=== PATIENT | female | born 1985 | race Caucasian/White ===

== ENCOUNTER 2017-06-07 08:44 | Emergency (ER) | payer SELFPAY ==
[~2017-06-07] VITALS: Ht 165.1 cm; Wt 98.0 kg
[2017-06-07 08:50] VITALS: BP 145/81
[2017-06-07 09:35] LABS: HEMATOCRIT 45.1 % (34.6-47.8)
[2017-06-07 09:48] LABS: BLOOD UREA NITROGEN 8 mg/dL (7-18)
[2017-06-07] MEDS ORDERED: ONDANSETRON ODT 4 MG ONE (09:52)
[2017-06-07] MEDS ORDERED: ONDANSETRON ODT 4 MG PO ONE (10:00)
== END 2017-06-07 11:50 | disposition home or self-care (01) ==
LOC: ED 09:55
DX: O20.0 Threatened abortion (principal); Z3A.01 Less than 8 weeks gestation of pregnancy
CPT/HCPCS: 36415; 76801; 80048; 81001; 82040; 84702; 85025; 86901; 87086; 99285

== ENCOUNTER 2017-06-21 14:52 | Emergency (ER) | payer MEDICAID ==
[~2017-06-21] VITALS: Ht 165.1 cm; Wt 94.7 kg
[2017-06-21] MEDS ORDERED: SODIUM CHLORIDE 0.9% 1,000ML IVBOLUS ONE (15:30)
[2017-06-21] MEDS ORDERED: SODIUM CHLORIDE FLUSH 10ML SYR IVF ONE (15:30)
[2017-06-21] MEDS ORDERED: ONDANSETRON 2MG/ML, 2ML IVPush ONE (15:30)
[2017-06-21 15:53] LABS: HEMATOCRIT 43.7 % (34.6-47.8); HEMOGLOBIN 14.8 g/dL (11.7-16.4); WHITE BLOOD COUNT 9.1 x10^3/uL (3.4-10)
[2017-06-21 15:59] LABS: RAPID INFLUENZA A Negative (Negative); RAPID INFLUENZA B Negative (Negative)
[2017-06-21 16:05] LABS: ASPARTATE AMINO TRANSFERASE 19 U/L (15-37); BLOOD UREA NITROGEN 6 mg/dL (7-18)
[2017-06-21] MEDS ORDERED: ONDANSETRON 2MG/ML, 2ML ONE (16:26)
[2017-06-21 18:41] VITALS: BP 126/82
== END 2017-06-21 18:44 | disposition home or self-care (01) ==
LOC: ED 18:20
DX: O26.891 Other specified pregnancy related conditions, first trimester (principal); Z3A.08 8 weeks gestation of pregnancy; G43.A1 Cyclical vomiting, in migraine, intractable; R11.0 Nausea
CPT/HCPCS: 36415; 76801; 80053; 81003; 84702; 85025; 87400; 96361; 96374; 99285; J2405; J7030

== ENCOUNTER 2017-09-21 12:35 | Outpatient (CLI) | payer MEDICAID | END 2017-09-21 13:10 | disposition home or self-care (01) | LOC: LDOP 12:35 | PROVIDERS: ATTEND Student in an Organized Health Care Education/Training Program | DX: O26.899 Other specified pregnancy related conditions, unspecified trimester (principal); R10.9 Unspecified abdominal pain; Z3A.00 Weeks of gestation of pregnancy not specified | CPT/HCPCS: 59025; 99211; G0463 ==

== ENCOUNTER 2017-09-21 13:15 | Inpatient (IN) | payer MEDICAID ==
[~2017-09-21] VITALS: Ht 165.1 cm; Wt 105.1 kg
[2017-09-21] MEDS ORDERED: SODIUM CHLORIDE FLUSH 10ML SYR IVF ONE (14:00)
[2017-09-21] MEDS ORDERED: SODIUM CHLORIDE 0.9% 1,000ML IVBOLUS ONE ×2 (14:00→16:30)
[2017-09-21] MEDS ORDERED: ONDANSETRON 2MG/ML, 2ML IVPush ONE (14:00)
[2017-09-21 14:35] LABS: BASOPHILS # (AUTO) 0.01 x10^3/uL (0-0.1); BASOPHILS % (AUTO) 0 % (0-1); EOSINOPHILS # (AUTO) 0.03 x10^3/uL (0-0.4); EOSINOPHILS % (AUTO) 0 % (1-7); LYMPHOCYTES % (AUTO) 7 % (22-44); MD NO; MEAN CORPUSCULAR HEMOGLOBIN 29.5 pg (27.0-34.8); MEAN CORPUSCULAR HGB CONC 33.7 g/dL (32.4-35.8); MEAN CORPUSCULAR VOLUME 87.6 fL (80-100); MEAN PLATELET VOLUME 10.7 fL (7.4-10.4); MONOCYTES # (AUTO) 0.36 x10^3/uL (0.2-0.8); MONOCYTES % (AUTO) 3 % (2-9); NEUTROPHILS # (AUTO) 10.91 x10^3/uL (1.8-6.8); NEUTROPHILS % (AUTO) 89 % (42-75); PLATELET COUNT 227 x10^3/uL (130-400); RED BLOOD COUNT 4.45 x10^6/uL (3.82-5.3); RED CELL DISTRIBUTION WIDTH 13.9 % (9.6-15.2)
[2017-09-21 14:47] LABS: ALBUMIN 2.9 g/dL (3.4-5.0); ANION GAP 8 mmol/L (5-15); CALCIUM 8.2 mg/dL (8.5-10.1); CHLORIDE 107 mmol/L (98-107)
[2017-09-21 14:51] LABS: ALANINE AMINOTRANSFERASE 17 U/L (12-78); ALKALINE PHOSPHATASE 82 U/L (45-117); BILIRUBIN,TOTAL 0.6 mg/dL (0.2-1.0); CREATININE 0.52 mg/dL (0.55-1.02); TOTAL PROTEIN 6.8 g/dL (6.4-8.2)
[2017-09-21] MEDS ORDERED: MORPHINE SULFATE 4 MG/ML, 1ML IVPush PRN ×2 (15:30→17:00)
[2017-09-21] MEDS ORDERED: MORPHINE SULFATE 4 MG/ML, 1ML ONE (15:32)
[2017-09-21] MEDS ORDERED: ONDANSETRON 2MG/ML, 2ML ONE (15:32)
[2017-09-21] MEDS ORDERED: SODIUM CHLORIDE 0.9% 1,000 ML IV ONE ×2 (16:00→16:52)
[2017-09-21 16:34] LABS: MICROSCOPIC INDICATED
[2017-09-21 16:38] LABS: CULTURE INDICATED? YES
[2017-09-21] MEDS ORDERED: SODIUM CHLORIDE FLUSH 10ML SYR IVF PRN (17:00)
[2017-09-21 17:58] VITALS: BP 113/68
[2017-09-21] MEDS: SODIUM CHLORIDE 0.9% 1,000 ML IV SCH (18:03)
[2017-09-21] MEDS: morphine SULFATE 10 MG/ML, 1ML IVPush PRN ×2 (19:22→22:46)
[2017-09-21 19:35] VITALS: BP 120/77
[2017-09-21] MEDS: ONDANSETRON 2MG/ML, 2ML IVPush PRN (22:46)
[2017-09-22] MEDS: SODIUM CHLORIDE 0.9% 1,000 ML IV SCH ×4 (00:18→19:55)
[2017-09-22 01:46] VITALS: BP 110/63
[2017-09-22 05:10] LABS: ALANINE AMINOTRANSFERASE 12 U/L (12-78); ALBUMIN 2.3 g/dL (3.4-5.0); ANION GAP 8 mmol/L (5-15); CALCIUM 7.6 mg/dL (8.5-10.1); CHLORIDE 111 mmol/L (98-107)
[2017-09-22 05:13] LABS: ALKALINE PHOSPHATASE 64 U/L (45-117); BILIRUBIN,TOTAL 0.5 mg/dL (0.2-1.0); CREATININE 0.39 mg/dL (0.55-1.02); TOTAL PROTEIN 5.5 g/dL (6.4-8.2)
[2017-09-22 05:18] LABS: BASOPHILS # (AUTO) 0.02 x10^3/uL (0-0.1); BASOPHILS % (AUTO) 0 % (0-1); EOSINOPHILS # (AUTO) 0.08 x10^3/uL (0-0.4); EOSINOPHILS % (AUTO) 1 % (1-7); LYMPHOCYTES # (AUTO) 1.57 x10^3/uL (1-3.4); LYMPHOCYTES % (AUTO) 20 % (22-44); MD NO; MEAN CORPUSCULAR HEMOGLOBIN 29.7 pg (27.0-34.8); MEAN CORPUSCULAR HGB CONC 33.9 g/dL (32.4-35.8); MEAN CORPUSCULAR VOLUME 87.7 fL (80-100); MONOCYTES # (AUTO) 0.65 x10^3/uL (0.2-0.8); MONOCYTES % (AUTO) 8 % (2-9); NEUTROPHILS # (AUTO) 5.47 x10^3/uL (1.8-6.8); NEUTROPHILS % (AUTO) 70 % (42-75); PLATELET COUNT 179 x10^3/uL (130-400); RED BLOOD COUNT 3.77 x10^6/uL (3.82-5.3); RED CELL DISTRIBUTION WIDTH 13.6 % (9.6-15.2)
[2017-09-22 06:53] VITALS: BP 112/58
[2017-09-22] MEDS: ONDANSETRON 2MG/ML, 2ML IVPush PRN ×2 (07:42→21:39)
[2017-09-22] MEDS: morphine SULFATE 10 MG/ML, 1ML IVPush PRN (07:51)
[2017-09-22 13:10] VITALS: BP 120/82
[2017-09-22] MEDS: morphine SULFATE 15 MG TAB.IR PO PRN ×2 (14:54→20:57)
[2017-09-22 18:31] VITALS: BP 106/66
[2017-09-23 01:58] VITALS: BP 91/53
[2017-09-23 02:00] VITALS: BP 104/66
[2017-09-23] MEDS: SODIUM CHLORIDE 0.9% 1,000 ML IV SCH ×4 (02:25→22:21)
[2017-09-23 05:44] LABS: ALBUMIN 2.3 g/dL (3.4-5.0); ANION GAP 8 mmol/L (5-15); CALCIUM 7.5 mg/dL (8.5-10.1); CHLORIDE 111 mmol/L (98-107)
[2017-09-23 05:49] LABS: ALANINE AMINOTRANSFERASE 15 U/L (12-78); ALKALINE PHOSPHATASE 61 U/L (45-117); BILIRUBIN,TOTAL 0.3 mg/dL (0.2-1.0); CREATININE 0.39 mg/dL (0.55-1.02); TOTAL PROTEIN 5.6 g/dL (6.4-8.2)
[2017-09-23 08:00] VITALS: BP 123/83
[2017-09-23] MEDS: morphine SULFATE 10 MG/ML, 1ML IVPush PRN ×2 (11:42→22:21)
[2017-09-23] MEDS: ONDANSETRON 2MG/ML, 2ML IVPush PRN ×2 (11:43→22:21)
[2017-09-23 15:04] VITALS: BP 117/75
[2017-09-23 19:27] VITALS: BP 119/78
[2017-09-24 03:13] VITALS: BP 125/70
[2017-09-24] MEDS: SODIUM CHLORIDE 0.9% 1,000 ML IV SCH ×3 (04:00→14:38)
[2017-09-24 05:28] LABS: CHLORIDE 110 mmol/L (98-107)
[2017-09-24 05:36] LABS: ANION GAP 13 mmol/L (5-15); CALCIUM 7.7 mg/dL (8.5-10.1); CREATININE 0.34 mg/dL (0.55-1.02)
[2017-09-24 05:37] LABS: ALANINE AMINOTRANSFERASE 14 U/L (12-78); ALBUMIN 2.3 g/dL (3.4-5.0); ALKALINE PHOSPHATASE 63 U/L (45-117); BILIRUBIN,TOTAL 0.7 mg/dL (0.2-1.0); TOTAL PROTEIN 5.6 g/dL (6.4-8.2)
[2017-09-24 07:15] VITALS: BP 108/70
[2017-09-24] MEDS: ONDANSETRON 2MG/ML, 2ML IVPush PRN (08:20)
[2017-09-24 14:02] VITALS: BP 135/86
[2017-09-24] MEDS ORDERED: SODIUM CHLORIDE 0.9% 1,000 ML IV SCH ×2 (15:00→17:12)
[2017-09-24] MEDS ORDERED: POTASSIUM CHLORIDE 20 MEQ TAB.ER.PRT PO ONE (18:30)
[2017-09-24 18:41] VITALS: BP 115/76
[2017-09-25] MEDS: SODIUM CHLORIDE 0.9% 1,000 ML IV SCH ×3 (01:00→23:00)
[2017-09-25 02:20] VITALS: BP 140/85
[2017-09-25] MEDS: morphine SULFATE 10 MG/ML, 1ML IVPush PRN (03:48)
[2017-09-25] MEDS: ONDANSETRON 2MG/ML, 2ML IVPush PRN (03:50)
[2017-09-25 05:52] LABS: ALANINE AMINOTRANSFERASE 15 U/L (12-78); ALBUMIN 2.5 g/dL (3.4-5.0); ANION GAP 6 mmol/L (5-15); CALCIUM 7.8 mg/dL (8.5-10.1); CHLORIDE 112 mmol/L (98-107); CREATININE 0.38 mg/dL (0.55-1.02)
[2017-09-25 05:54] LABS: ALKALINE PHOSPHATASE 69 U/L (45-117); BILIRUBIN,TOTAL 0.3 mg/dL (0.2-1.0); TOTAL PROTEIN 5.9 g/dL (6.4-8.2)
[2017-09-25 07:53] VITALS: BP 119/78
[2017-09-25] MEDS ORDERED: MAGNESIUM SULFATE PMX 2GM/50ML 50 ML IV ONE (13:00)
[2017-09-25] MEDS: GUAIFENESIN 200 MG TABLET PO SCH ×3 (13:55→20:26)
[2017-09-25 14:12] VITALS: BP 112/73
[2017-09-25 18:57] VITALS: BP 123/79
[2017-09-26 03:20] VITALS: BP 111/69
[2017-09-26 05:39] LABS: ALBUMIN 2.3 g/dL (3.4-5.0); CALCIUM 7.9 mg/dL (8.5-10.1); CHLORIDE 109 mmol/L (98-107)
[2017-09-26 05:43] LABS: ALANINE AMINOTRANSFERASE 13 U/L (12-78); ALKALINE PHOSPHATASE 65 U/L (45-117); ANION GAP 7 mmol/L (5-15); BILIRUBIN,TOTAL 0.4 mg/dL (0.2-1.0); CREATININE 0.35 mg/dL (0.55-1.02); TOTAL PROTEIN 5.7 g/dL (6.4-8.2)
[2017-09-26] MEDS: SODIUM CHLORIDE 0.9% 1,000 ML IV SCH (07:00)
[2017-09-26 07:45] VITALS: BP 122/77
[2017-09-26] MEDS: GUAIFENESIN 200 MG TABLET PO SCH ×3 (09:59→22:02)
[2017-09-26] MEDS: morphine SULFATE 10 MG/ML, 1ML IVPush PRN (12:11)
[2017-09-26] MEDS: ONDANSETRON 2MG/ML, 2ML IVPush PRN (12:23)
[2017-09-26 14:24] VITALS: BP 130/96
[2017-09-26] MEDS ORDERED: BUPIVACAINE/PF 0.5% ONE (14:54)
[2017-09-26] MEDS ORDERED: EPINEPHRINE 1 MG/ML, 1ML ONE (14:54)
[2017-09-26] MEDS ORDERED: FENTANYL PF 250 MCG/5ML ONE (15:05)
[2017-09-26] MEDS ORDERED: LIDOCAINE-MPF 2% ,5ML ONE (15:05)
[2017-09-26] MEDS ORDERED: PROPOFOL 10 MG/ML, 20ML ONE (15:05)
[2017-09-26] MEDS ORDERED: ROCURONIUM 10 MG/ML,10ML ONE (15:06)
[2017-09-26] MEDS ORDERED: DEXAMETHASONE 4 MG/ML, 1ML ONE (15:07)
[2017-09-26] MEDS ORDERED: ONDANSETRON 2MG/ML, 2ML ONE (15:07)
[2017-09-26] MEDS ORDERED: CEFOTETAN 2 GM ONE (15:26)
[2017-09-26] MEDS ORDERED: DEXAMETHASONE 4 MG/ML, 5ML ONE (15:26)
[2017-09-26] MEDS ORDERED: HYDROmorphone 2 MG/ML, 1ML ONE (16:05)
[2017-09-26] MEDS ORDERED: NEOSTIGMINE 1 MG/ML, 10ML ONE (16:26)
[2017-09-26] MEDS ORDERED: GLYCOPYRROLATE 0.4 MG/2 ML, 2ML ONE (16:26)
[2017-09-26] MEDS ORDERED: ONDANSETRON 2MG/ML, 2ML IVPush PRN (16:30)
[2017-09-26] MEDS ORDERED: PROMETHAZINE 25 MG/ML, 1ML IV PRN (16:30)
[2017-09-26] MEDS ORDERED: MEPERIDINE/PF 25MG/0.5ML IVPush PRN (16:30)
[2017-09-26] MEDS ORDERED: ACETAMINOPHEN 325 MG TABLET PO PRN (16:30)
[2017-09-26] MEDS ORDERED: OXYcodone 5 MG/5 ML ORAL.SOL UDC PO PRN (16:30)
[2017-09-26] MEDS ORDERED: morphine SULFATE 10 MG/ML, 1ML ONE (16:50)
[2017-09-26] MEDS ORDERED: OXYcodone 5 MG/5 ML ORAL.SOL UDC ONE (16:50)
[2017-09-26] MEDS ORDERED: FENTANYL PF 100 MCG/2ML ONE (16:50)
[2017-09-26] MEDS: FENTANYL PF 100 MCG/2ML IV PRN ×2 (16:53→17:02)
[2017-09-26] MEDS ORDERED: ACETAMINOPHEN 650 MG/20.3 ML UDC ONE (16:55)
[2017-09-26] MEDS: morphine SULFATE 10 MG/ML, 1ML IV PRN ×3 (16:55→17:16)
[2017-09-26] MEDS: LACTATED RINGERS 1,000 ML IV SCH (18:34)
[2017-09-26 19:32] VITALS: BP 121/71
[2017-09-26] MEDS: ONDANSETRON 2MG/ML, 2ML IV PRN (19:42)
[2017-09-26] MEDS: MORPHINE SULFATE 4 MG/ML, 1ML IV PRN ×2 (19:43→22:33)
[2017-09-26] MEDS ORDERED: ALBUTEROL SULFATE 2.5 MG/3 ML NPPB PRN (20:00)
[2017-09-27 00:06] VITALS: BP 113/71
[2017-09-27] MEDS: ONDANSETRON 2MG/ML, 2ML IV PRN ×4 (02:07→20:05)
[2017-09-27] MEDS: MORPHINE SULFATE 4 MG/ML, 1ML IV PRN ×3 (02:07→09:09)
[2017-09-27 03:49] VITALS: BP 108/70
[2017-09-27 05:32] LABS: BASOPHILS # (AUTO) 0.11 x10^3/uL (0-0.1); BASOPHILS % (AUTO) 1 % (0-1); EOSINOPHILS # (AUTO) 0.02 x10^3/uL (0-0.4); EOSINOPHILS % (AUTO) 0 % (1-7); LYMPHOCYTES # (AUTO) 1.66 x10^3/uL (1-3.4); LYMPHOCYTES % (AUTO) 13 % (22-44); MD NO; MEAN CORPUSCULAR HEMOGLOBIN 30.1 pg (27.0-34.8); MEAN CORPUSCULAR HGB CONC 34.2 g/dL (32.4-35.8); MEAN CORPUSCULAR VOLUME 88.2 fL (80-100); MEAN PLATELET VOLUME 11.6 fL (7.4-10.4); MONOCYTES # (AUTO) 0.54 x10^3/uL (0.2-0.8); MONOCYTES % (AUTO) 4 % (2-9); NEUTROPHILS % (AUTO) 82 % (42-75); PLATELET COUNT 183 x10^3/uL (130-400); RED BLOOD COUNT 3.91 x10^6/uL (3.82-5.3); RED CELL DISTRIBUTION WIDTH 14.1 % (9.6-15.2)
[2017-09-27 05:38] LABS: CHLORIDE 106 mmol/L (98-107)
[2017-09-27 05:47] LABS: ALANINE AMINOTRANSFERASE 32 U/L (12-78); ALBUMIN 2.4 g/dL (3.4-5.0); ALKALINE PHOSPHATASE 67 U/L (45-117); ANION GAP 9 mmol/L (5-15); BILIRUBIN,TOTAL 0.3 mg/dL (0.2-1.0); CALCIUM 8.1 mg/dL (8.5-10.1); CREATININE 0.44 mg/dL (0.55-1.02); TOTAL PROTEIN 5.6 g/dL (6.4-8.2)
[2017-09-27] MEDS ORDERED: MAGNESIUM SULFATE PMX 2GM/50ML 50 ML IV ONE (07:30)
[2017-09-27 07:54] VITALS: BP 130/72
[2017-09-27] MEDS: AMOXICILLIN/CLAV 875-125MG TABLET PO SCH ×2 (08:16→20:06)
[2017-09-27] MEDS: morphine SULFATE 15 MG TAB.IR PO PRN ×3 (08:17→20:05)
[2017-09-27] MEDS: GUAIFENESIN 200 MG TABLET PO SCH ×3 (09:09→21:54)
[2017-09-27 13:48] VITALS: BP 116/66
[2017-09-27] MEDS: LACTATED RINGERS 1,000 ML IV SCH (18:13)
[2017-09-27 20:06] VITALS: BP 119/74
[2017-09-28 01:31] VITALS: BP 117/69
[2017-09-28] MEDS: morphine SULFATE 15 MG TAB.IR PO PRN ×2 (01:43→08:39)
[2017-09-28] MEDS: ONDANSETRON 2MG/ML, 2ML IV PRN ×2 (02:43→08:38)
[2017-09-28 05:53] LABS: CHLORIDE 106 mmol/L (98-107)
[2017-09-28 05:57] LABS: BASOPHILS # (AUTO) 0.14 x10^3/uL (0-0.1); BASOPHILS % (AUTO) 2 % (0-1); EOSINOPHILS # (AUTO) 0.18 x10^3/uL (0-0.4); EOSINOPHILS % (AUTO) 2 % (1-7); LYMPHOCYTES # (AUTO) 1.74 x10^3/uL (1-3.4); LYMPHOCYTES % (AUTO) 19 % (22-44); MD NO; MEAN CORPUSCULAR HEMOGLOBIN 29.3 pg (27.0-34.8); MEAN CORPUSCULAR HGB CONC 33.4 g/dL (32.4-35.8); MEAN CORPUSCULAR VOLUME 87.9 fL (80-100); MONOCYTES # (AUTO) 0.67 x10^3/uL (0.2-0.8); MONOCYTES % (AUTO) 7 % (2-9); NEUTROPHILS # (AUTO) 6.34 x10^3/uL (1.8-6.8); NEUTROPHILS % (AUTO) 70 % (42-75); PLATELET COUNT 179 x10^3/uL (130-400); RED BLOOD COUNT 3.91 x10^6/uL (3.82-5.3); RED CELL DISTRIBUTION WIDTH 13.7 % (9.6-15.2)
[2017-09-28 06:00] LABS: ALANINE AMINOTRANSFERASE 37 U/L (12-78); ALBUMIN 2.4 g/dL (3.4-5.0); ALKALINE PHOSPHATASE 81 U/L (45-117); ANION GAP 7 mmol/L (5-15); BILIRUBIN,TOTAL 0.8 mg/dL (0.2-1.0); CREATININE 0.47 mg/dL (0.55-1.02); TOTAL PROTEIN 5.7 g/dL (6.4-8.2)
[2017-09-28 07:57] VITALS: BP 113/67
[2017-09-28] MEDS: AMOXICILLIN/CLAV 875-125MG TABLET PO SCH (08:39)
[2017-09-28] MEDS: LACTATED RINGERS 1,000 ML IV SCH (10:42)
[2017-09-28] MEDS: GUAIFENESIN 200 MG TABLET PO SCH (10:42)
[2017-09-28] MEDS ORDERED: MORP15TA PO (11:00)
[2017-09-28] MEDS ORDERED: GUAI200T3 PO (11:00)
[2017-09-28] MEDS ORDERED: ONDA4TAB13 SL (11:00)
[2017-09-28] MEDS ORDERED: AMOX1TAB12 PO (11:00)
[2017-09-28 12:31] VITALS: BP 112/69
== END 2017-09-28 13:11 | disposition home or self-care (01) | DRG 781 ==
LOC: ED 15:47 → SUATTDRO 16:47 → EDIP 16:52 → 4NOR 17:51
PROVIDERS: ADMIT Internal Medicine; ATTEND Internal Medicine
PROC: 0FT44ZZ Resection of Gallbladder, Percutaneous Endoscopic Approach (ICD-10-PCS; principal; 2017-09-26 15:00)
DX: O26.612 Liver and biliary tract disorders in pregnancy, second trimester (principal); E43 Unspecified severe protein-calorie malnutrition; K85.10 Biliary acute pancreatitis without necrosis or infection; K80.10 Calculus of gallbladder with chronic cholecystitis without obstruction; O23.42 Unspecified infection of urinary tract in pregnancy, second trimester; O99.282 Endocrine, nutritional and metabolic diseases complicating pregnancy, second trimester; E83.42 Hypomagnesemia; Z68.38 Body mass index [BMI] 38.0-38.9, adult; O25.12 Malnutrition in pregnancy, second trimester; O26.852 Spotting complicating pregnancy, second trimester; O99.89 Other specified diseases and conditions complicating pregnancy, childbirth and the puerperium; Z3A.22 22 weeks gestation of pregnancy; Z80.1 Family history of malignant neoplasm of trachea, bronchus and lung; Z80.8 Family history of malignant neoplasm of other organs or systems; Z82.49 Family history of ischemic heart disease and other diseases of the circulatory system; Z86.14 Personal history of Methicillin resistant Staphylococcus aureus infection; Z87.442 Personal history of urinary calculi
CPT/HCPCS: 36415; 76700; 80053; 81001; 83690; 83735; 84100; 85025; 87086; 88304; 96374; 96375; J0171; J1100; J1170; J2405; J2704; J2710; J3010; J3490; J2270; J3475; J7030; J7120; S0074

== ENCOUNTER 2018-01-06 01:44 | Emergency (ER) | payer MEDICAID ==
[~2018-01-06] VITALS: Ht 165.1 cm; Wt 100.2 kg
[~2018-01-06 01:44] MED LIST: AMOX1TAB12 PO; GUAI200T3 PO; MORP15TA PO; ONDA4TAB13 SL
[2018-01-06 01:46] VITALS: BP 138/90
[2018-01-06] MEDS ORDERED: PRENATAL VITS (01:51)
[2018-01-06] MEDS ORDERED: LIDOCAINE-MPF 1%, 2ML ONE (02:18)
[2018-01-06 02:24] LABS: CLUE CELLS NONE SEEN (NONE SEEN); WET PREP WBCS MANY (FEW)
[2018-01-06] MEDS ORDERED: LIDOCAINE-MPF 1%, 5ML INFIL ONE (02:30)
[2018-01-06 03:23] LABS: MICROSCOPIC AUTO
[2018-01-06 03:24] LABS: CULTURE INDICATED? YES
== END 2018-01-06 03:47 | disposition home or self-care (01) ==
LOC: ED 03:20
DX: O23.593 Infection of other part of genital tract in pregnancy, third trimester (principal); B37.3 Candidiasis of vulva and vagina; O26.893 Other specified pregnancy related conditions, third trimester; R82.71 Bacteriuria; Z3A.37 37 weeks gestation of pregnancy
CPT/HCPCS: 56405; 81001; 87086; 87210; 87808; 99284

== ENCOUNTER 2018-01-23 19:49 | Inpatient (IN) | payer MEDICAID ==
[~2018-01-23] VITALS: Ht 165.1 cm; Wt 100.9 kg
[~2018-01-23 19:49] MED LIST changes: +PRENATAL VITS
[2018-01-23] MEDS ORDERED: OXYTOCIN 30U/ 0.9% NaCL 500ML 500 ML IV ONE (20:29)
[2018-01-23] MEDS ORDERED: OXYTOCIN 30U/ 0.9% NaCL 500ML 500 ML IV PRN ×2 (20:29→21:26)
[2018-01-23] MEDS ORDERED: D5%-LACTATED RINGERS 1,000 ML IV SCH (20:29)
[2018-01-23] MEDS ORDERED: CALCIUM CARBONATE 500 MG TAB.CHEW PO PRN (20:30)
[2018-01-23] MEDS ORDERED: FENTANYL PF 100 MCG/2ML IVPush PRN (20:30)
[2018-01-23] MEDS ORDERED: FENTANYL PF 100 MCG/2ML IV PRN (20:30)
[2018-01-23] MEDS ORDERED: METOCLOPRAMIDE 5 MG/ML, 2ML IVPush PRN (20:30)
[2018-01-23] MEDS ORDERED: ONDANSETRON 2MG/ML, 2ML IVPush PRN (20:30)
[2018-01-23] MEDS ORDERED: SODIUM CITRATE/CITRIC ACID 30 ML UDC PO PRN (20:30)
[2018-01-23] MEDS: LACTATED RINGERS 1,000 ML IV SCH (20:48)
[2018-01-23] MEDS ORDERED: PLEASE ENTER HEIGHT AND WEIGHT MC SCH (21:00)
[2018-01-23 21:03] LABS: BASOPHILS # (AUTO) 0.08 x10^3/uL (0-0.1); BASOPHILS % (AUTO) 1 % (0-1); EOSINOPHILS # (AUTO) 0.12 x10^3/uL (0-0.4); EOSINOPHILS % (AUTO) 1 % (1-7); LYMPHOCYTES % (AUTO) 19 % (22-44); MD NO; MEAN CORPUSCULAR HEMOGLOBIN 29.9 pg (27.0-34.8); MEAN CORPUSCULAR HGB CONC 33.5 g/dL (32.4-35.8); MEAN CORPUSCULAR VOLUME 89.1 fL (80-100); MEAN PLATELET VOLUME 12.1 fL (7.4-10.4); MONOCYTES # (AUTO) 0.66 x10^3/uL (0.2-0.8); MONOCYTES % (AUTO) 7 % (2-9); NEUTROPHILS # (AUTO) 7.03 x10^3/uL (1.8-6.8); NEUTROPHILS % (AUTO) 73 % (42-75); PLATELET COUNT 209 x10^3/uL (130-400); RED BLOOD COUNT 4.27 x10^6/uL (3.82-5.3); RED CELL DISTRIBUTION WIDTH 14.4 % (9.6-15.2)
[2018-01-23] MEDS ORDERED: LIDOCAINE/PF 1%, 30ML ONE (21:15)
[2018-01-23] MEDS ORDERED: MISOPROSTOL 200 MCG TABLET ONE (21:15)
[2018-01-23] MEDS ORDERED: OXYTOCIN 30U/ 0.9% NaCL 500ML 500 ML ONE (21:16)
[2018-01-24] MEDS: LACTATED RINGERS 1,000 ML IV SCH (01:12)
[2018-01-24] MEDS ORDERED: FENTANYL/BUPIV./NS/PF 250 ML EPIDCONT SCH ×3 (02:10→03:20)
[2018-01-24] MEDS ORDERED: FENTANYL PF 100 MCG/2ML ONE ×2 (02:18→02:45)
[2018-01-24] MEDS ORDERED: FENTANYL/BUPIV./NS/PF 0 ML EPIDCONT ONE (02:36)
[2018-01-24] MEDS ORDERED: FENTANYL/BUPIV./NS/PF 250 ML EPIDCONT ONE (02:46)
[2018-01-24] MEDS ORDERED: BUPIVACAINE 0.25% ONE (02:47)
[2018-01-24] MEDS ORDERED: LACTATED RINGERS 1,000 ML IV SCH ×2 (03:20)
[2018-01-24] MEDS ORDERED: EPHEDRINE 50 MG/ML, 1ML IVPush PRN (03:30)
[2018-01-24] MEDS ORDERED: LACTATED RINGERS 1,000 ML IVBOLUS PRN (03:30)
[2018-01-24] MEDS ORDERED: ONDANSETRON 2MG/ML, 2ML IVPush PRN (03:30)
[2018-01-24] MEDS ORDERED: OXYTOCIN 30U/ 0.9% NaCL 500ML 500 ML IV SCH (04:16)
[2018-01-24] MEDS: OXYTOCIN 30U/ 0.9% NaCL 500ML 500 ML IV SCH ×2 (04:16→14:16)
[2018-01-24] MEDS ORDERED: CALCIUM CARBONATE 500 MG TAB.CHEW PO PRN (04:30)
[2018-01-24] MEDS ORDERED: HYDROcodone/APAP 5/325 TABLET PO PRN ×2 (04:30)
[2018-01-24] MEDS ORDERED: ONDANSETRON 2MG/ML, 2ML IV PRN (04:30)
[2018-01-24] MEDS ORDERED: BISACODYL 10 MG SUPP PR PRN (04:30)
[2018-01-24] MEDS ORDERED: MISOPROSTOL 200 MCG TABLET PR PRN (04:30)
[2018-01-24] MEDS ORDERED: ACETAMINOPHEN 325 MG TABLET PO PRN ×2 (04:30)
[2018-01-24] MEDS ORDERED: OXYTOCIN 30U/ 0.9% NaCL 500ML 500 ML ONE (05:17)
[2018-01-24 06:43] VITALS: BP 128/71
[2018-01-24 07:15] VITALS: BP 126/83
[2018-01-24] MEDS: PRENATAL VIT/IRON/FA 1 EACH TABLET PO SCH (09:06)
[2018-01-24] MEDS: IBUPROFEN 600 MG TABLET PO PRN ×2 (09:06→16:52)
[2018-01-24] MEDS: DOCUSATE 100 MG CAPSULE PO PRN (09:06)
[2018-01-24 12:14] LABS: BASOPHILS # (AUTO) 0.03 x10^3/uL (0-0.1); BASOPHILS % (AUTO) 0 % (0-1); EOSINOPHILS # (AUTO) 0.08 x10^3/uL (0-0.4); EOSINOPHILS % (AUTO) 1 % (1-7); LYMPHOCYTES % (AUTO) 15 % (22-44); MD NO; MEAN CORPUSCULAR HEMOGLOBIN 29.9 pg (27.0-34.8); MEAN CORPUSCULAR HGB CONC 33.4 g/dL (32.4-35.8); MEAN CORPUSCULAR VOLUME 89.5 fL (80-100); MEAN PLATELET VOLUME 12.1 fL (7.4-10.4); MONOCYTES # (AUTO) 0.92 x10^3/uL (0.2-0.8); MONOCYTES % (AUTO) 6 % (2-9); NEUTROPHILS # (AUTO) 11.63 x10^3/uL (1.8-6.8); NEUTROPHILS % (AUTO) 78 % (42-75); PLATELET COUNT 194 x10^3/uL (130-400); RED BLOOD COUNT 4.36 x10^6/uL (3.82-5.3); RED CELL DISTRIBUTION WIDTH 14.4 % (9.6-15.2)
[2018-01-24 12:30] VITALS: BP 133/68
[2018-01-24 16:30] VITALS: BP 113/74
[2018-01-24 19:35] VITALS: BP 117/73
[2018-01-25 00:05] VITALS: BP 100/62
[2018-01-25 03:35] VITALS: BP 120/77
[2018-01-25 07:10] VITALS: BP 131/83
[2018-01-25] MEDS: IBUPROFEN 600 MG TABLET PO PRN (07:14)
[2018-01-25] MEDS: PRENATAL VIT/IRON/FA 1 EACH TABLET PO SCH (07:14)
[2018-01-25] MEDS: DOCUSATE 100 MG CAPSULE PO PRN (07:14)
[2018-01-25] MEDS ORDERED: IBUP-1222 PO (08:30)
== END 2018-01-25 10:55 | disposition home or self-care (01) | DRG 775 ==
LOC: LDOP 19:49 → LDIP 20:22 → 2NW 01-24 06:14
PROVIDERS: ADMIT Student in an Organized Health Care Education/Training Program; ATTEND Student in an Organized Health Care Education/Training Program
PROC: 10E0XZZ Delivery of Products of Conception, External Approach (ICD-10-PCS; principal; 2018-01-24)
PROC: 3E0R3BZ Introduction of Anesthetic Agent into Spinal Canal, Percutaneous Approach (ICD-10-PCS; 2018-01-24)
PROC: 00HU33Z Insertion of Infusion Device into Spinal Canal, Percutaneous Approach (ICD-10-PCS; 2018-01-24)
PROC: 0UQMXZZ Repair Vulva, External Approach (ICD-10-PCS; 2018-01-24)
DX: O71.89 Other specified obstetric trauma (principal); Z37.0 Single live birth; Z3A.39 39 weeks gestation of pregnancy
CPT/HCPCS: 36415; 85025; 86850; 86900; 89060; J3010; J2590; J7120; Q0114

== ENCOUNTER 2020-01-12 20:04 | Emergency (ER) | payer OTHER ==
[~2020-01-12] VITALS: Ht 165.1 cm; Wt 97.1 kg
[~2020-01-12 20:04] MED LIST changes: +ASCO10004 PO; -GUAI200T3 PO; +GUAI200T37 PO; +IBUP-1222 PO; +OMEP-110 PO
--- NOTE | 2020-01-12 20:24 | NUR ---
FIRST CONTACT WITH PT: PT LAYING IN GURNEY, TEARY EYED, AT BS, APPEARS UNCOMFORTABLE. STATES "MY SHOULDER IS HURTING REALLY BAD", PT STATES PAIN IS AN 8/10 AND THAT IT IS "DEEP INSIDE HER SHOULDER.", DENIES ANY TRAUMA TO THE AREA, STATES ITS A "THROBBING PAIN BUT WHEN I LIFT IT, IT SHOOTS UP TO A 10". CMS INTACT, DENIES ANY NUMBNESS OR TINGLING TO EXTREMITY. STATES THE PAIN CAME ON AFTER PULLING ON WEEDS ON SUNDAY PT TO 2 OTC ALIEVE AROUND 1500 PM. UNKNOWN EXACT DOSE. PT PLACED ON BP/SPO2 MONITORING, VSS. WCTM.
--- NOTE | 2020-01-12 20:38 | NUR ---
PT GIVEN WARM BLANKET FOR COMFORT, CONDITION UNCHANGED, WCTM.
[2020-01-12] MEDS ORDERED: KETOROLAC 30 MG/1 ML IM ONE (21:00)
[2020-01-12] MEDS ORDERED: DIAZEPAM 5 MG TABLET PO ONE (21:00)
[2020-01-12] MEDS ORDERED: DIAZEPAM 5 MG TABLET ONE (21:05)
[2020-01-12] MEDS ORDERED: KETOROLAC 30 MG/1 ML ONE (21:06)
--- NOTE | 2020-01-12 21:09 | NUR ---
PT TO AND FROM RADIOLOGY, NO CHANGE IN CONDITION. P/W/D. MEDICATED PER SEP. WCTM.
--- NOTE | 2020-01-12 22:00 | NUR ---
TECH AT BS APPLYING SHOULDER SLING, PT RESTING IN BED, HUSBANDAT BEDSIDE, PAIN DECREASED, APPEARS MORE COMFORTABLE. ICE ON SHOULDER. WCTM.
[2020-01-12 22:32] VITALS: BP 121/76
--- NOTE | 2020-01-12 22:33 | NUR ---
Patient given discharge instructions and they have confirmed that they understand the instructions. Patient ambulatory with steady gait. GIVEN ICE PACK TO TAKE HOME, SLING APPLIED, DENIES ADDITIONAL NEEDS OR QUESTIONS AT THIS TIME. ALL BELONGINGS WITH PT AT TIME OF DC.
== END 2020-01-12 22:38 | disposition home or self-care (01) ==
LOC: ED 22:36
DX: M25.511 Pain in right shoulder (principal); X50.0XXA Overexertion from strenuous movement or load, initial encounter; Y93.89 Activity, other specified; Y92.009 Unspecified place in unspecified non-institutional (private) residence as the place of occurrence of the external cause; Y99.8 Other external cause status
CPT/HCPCS: 73030; 96372; 99283; J1885